=== PATIENT | male | born 1955 | race African-American/Black ===

== ENCOUNTER 2017-06-09 06:47 | Emergency (ER) | payer SELFPAY ==
[~2017-06-09] VITALS: Ht 170.2 cm; Wt 98.9 kg
[~2017-06-09 06:47] MED LIST: NAPR220T70 PO
--- NOTE | 2017-06-09 07:01 | PHYS DOC ---
Past History Past Medical History: CAD, Hypertension, Other Past Surgical History: Coronary Bypass Surgery, Other Smoking: Quit Greater Than 1 Year Alcohol Use: None Drug Use: None Adult General Chief Complaint Chief Complaint: chest pain HPI HPI Patient is a 62 year old M who presents with dull central chest pain that is worse with activity and improved with rest. His symptoms have been present for months. He feels that his symptoms have been progressively worsening and are much worse over the past few days. He states that he has been taking ibuprofen and aspirin for his pain. He does have a history of CAD and has had an CABG. Review of Systems Review of Systems Constitutional: Denies fever or chills [] Eyes: Denies change in visual acuity, redness, or eye pain [] HENT: Denies nasal congestion or sore throat [] Respiratory: Denies cough or shortness of breath [] Cardiovascular: No additional information not addressed in HPI [] GI: Denies abdominal pain, nausea, vomiting, bloody stools or diarrhea [] : Denies dysuria or hematuria [] Musculoskeletal: Denies back pain or joint pain [] Integument: Denies rash or skin lesions [] Neurologic: Denies headache, focal weakness or sensory changes [] Endocrine: Denies polyuria or polydipsia [] All other systems were reviewed and found to be within normal limits, except as documented in this note. Family History Family History Family history of heart disease Current Medications Current Medications Current medications reviewed Allergies Allergies Allergies Coded Allergies Type Severity Reaction Last Updated Verified No Known Drug Allergies 08/30/13 No Physical Exam Physical Exam Constitutional: Well developed, well nourished, no acute distress, non-toxic appearance. [] HENT: Normocephalic, atraumatic, bilateral external ears normal, oropharynx moist, no oral exudates, nose normal. [] Eyes: EOMI, conjunctiva normal, no discharge. [] Neck: Normal range of motion, no tenderness, supple, no stridor. [] Cardiovascular:Heart rate regular rhythm, Lungs & Thorax: Bilateral breath sounds clear to auscultation [] point tender pain over the superior edge of the sternum. Abdomen: Bowel sounds normal, soft, no tenderness, no masses, no pulsatile masses. [] Skin: Warm, dry, no erythema, no rash. [] Back: No tenderness, no CVA tenderness. [] Extremities: No tenderness, no cyanosis, no clubbing, ROM intact, no edema. [] Neurologic: Alert and oriented X 3, normal motor function, normal sensory function, no focal deficits noted. [] Psychologic: Affect normal, judgement normal, mood normal. [] Current Patient Data Vital Signs Vital Signs Date Time Temp Pulse Resp B/P (MAP) Pulse Ox O2 Delivery O2 Flow Rate FiO2 06/09/17 06:47 97.6 65 18 94 Room Air Lab Results Laboratory Tests Test 06/09/17 07:05 White Blood Count 5.4 x10^3/uL (4.0-11.0) Red Blood Count 5.21 x10^6/uL (4.30-5.70) Hemoglobin 16.6 g/dL (13.0-17.5) Hematocrit 47.6 % (39.0-53.0) Mean Corpuscular Volume 91 fL (79-100) Mean Corpuscular Hemoglobin 32 pg (25-35) Mean Corpuscular Hemoglobin Concent 35 g/dL (31-37) Red Cell Distribution Width 12.8 % (11.5-14.5) Platelet Count 229 x10^3/uL (140-400) Neutrophils (%) (Auto) 52 % (31-73) Lymphocytes (%) (Auto) 33 % (24-48) Monocytes (%) (Auto) 9 % (0-9) Eosinophils (%) (Auto) 6 % (0-3) Basophils (%) (Auto) 1 % (0-3) Neutrophils # (Auto) 2.8 x10^3uL (1.8-7.7) Lymphocytes # (Auto) 1.8 x10^3/uL (1.0-4.8) Monocytes # (Auto) 0.5 x10^3/uL (0.0-1.1) Eosinophils # (Auto) 0.3 x10^3/uL (0.0-0.7) Basophils # (Auto) 0.0 x10^3/uL (0.0-0.2) Sodium Level 138 mmol/L (136-145) Potassium Level 3.8 mmol/L (3.5-5.1) Chloride Level 99 mmol/L (98-107) Carbon Dioxide Level 32 mmol/L (21-32) Anion Gap 7 (6-14) Blood Urea Nitrogen 23 mg/dL (8-26) Creatinine 1.4 mg/dL (0.7-1.3) Estimated GFR (Cockcroft-Gault) 61.7 Glucose Level 150 mg/dL (70-99) Calcium Level 9.4 mg/dL (8.5-10.1) Magnesium Level 1.8 mg/dL (1.8-2.4) Creatine Kinase 113 U/L (39-308) Creatine Kinase MB (Mass) 4.2 ng/mL (0.0-3.6) Creatine Kinase MB Relative Index 3.7 % (0-4) Troponin I Quantitative 0.234 ng/mL (0-0.055) EKG EKG Sinus rhythm, normal QRS interval, T-wave inversion in leads 1 to aVF as well as V2 through V6. No significant interval changes noted when compared 3 EKGs from 08/30/13 Radiology/Procedures Radiology/Procedures [] Course & Med Decision Making Course & Med Decision Making Pertinent Labs and Imaging studies reviewed. (See chart for details) Will treat elevated blood pressure with hydralazine as needed. Will also give Lovenox 1/kg Dragon Disclaimer Dragon Disclaimer This electronic medical record was generated, in whole or in part, using a voice recognition dictation system. Departure Departure: Impression: Primary Impression: Non-ST elevation (NSTEMI) myocardial infarction Disposition: 05 XFER OTHER Condition: GUARDED LISSETH GAMBOA MD Jun 09, 2017 07:01
[2017-06-09 07:18] LABS: BASO % 1 % (0-3); EOS # 0.3 x10^3/uL (0.0-0.7); EOS % 6 % (0-3); HEMATOCRIT 47.6 % (39.0-53.0); HEMOGLOBIN 16.6 g/dL (13.0-17.5); LYMPH # 1.8 x10^3/uL (1.0-4.8); LYMPH % 33 % (24-48); MEAN CORPUSCULAR HEMOGLOBIN 32 pg (25-35); MEAN CORPUSCULAR HGB CONC 35 g/dL (31-37); MEAN CORPUSCULAR VOLUME 91 fL (79-100); MONO # 0.5 x10^3/uL (0.0-1.1); MONO % 9 % (0-9); NEUT # 2.8 x10^3uL (1.8-7.7); NEUT % 52 % (31-73); PLATELET COUNT 229 x10^3/uL (140-400); RED BLOOD COUNT 5.21 x10^6/uL (4.30-5.70); RED CELL DISTRIBUTION WIDTH 12.8 % (11.5-14.5); WHITE BLOOD COUNT 5.4 x10^3/uL (4.0-11.0)
[2017-06-09 07:45] LABS: CALCIUM 9.4 mg/dL (8.5-10.1); CREATININE 1.4 mg/dL (0.7-1.3); GFR 61.7; MAGNESIUM 1.8 mg/dL (1.8-2.4); POTASSIUM 3.8 mmol/L (3.5-5.1)
[2017-06-09] MEDS ORDERED: hydrALAZINE 20 MG/ML VIAL. IV ONE (08:00)
[2017-06-09] MEDS ORDERED: ENOXAPARIN ** NOTE DOSE ** SYRINGE SQ ONE (08:30)
[2017-06-09 08:40] VITALS: BP 175/97
[2017-06-09] MEDS ORDERED: MORPHINE SULFATE 2 MG/ML DISP.SYRIN. IV ONE (09:00)
--- NOTE | 2017-06-09 12:58 | EKG ---
[address] [address] Test Date: 2017-06-09 Test Time: 06:52:56 Pat Name: JAREN PHILIP Department: Room: Gender: M Dairy Husbandman: TRISH : 1955 Requested By: LISSETH GAMBOA Order Number: [id number] Reading MD: Measurements Intervals [place] Rate: 66 P: 54 NE: 148 QRS: -8 QRSD: 102 T: 176 QT: 370 QTc: 389 Interpretive Statements SINUS RHYTHM VENTRICULAR PREMATURE COMPLEX(ES) LEFTWARD AXIS LVH WITH REPOLARIZATION ABNORMALITY QRS(T) CONTOUR ABNORMALITY CONSIDER ANTEROSEPTAL MYOCARDIAL DAMAGE CONSIDER INFERIOR INFARCT ABNORMAL ECG RI6.01 No previous ECG available for comparison
== END 2017-06-09 09:30 | disposition short-term general hospital (02) ==
LOC: ER 06:47
DX: I21.4 Non-ST elevation (NSTEMI) myocardial infarction (principal); I10 Essential (primary) hypertension; I25.810 Atherosclerosis of coronary artery bypass graft(s) without angina pectoris; Z87.891 Personal history of nicotine dependence
CPT/HCPCS: 36415; 80048; 82553; 83735; 84484; 85025; 93005; 96372; 96374; 99285; J0360; J1650

== ENCOUNTER 2019-02-02 07:45 | Emergency (ER) | payer MEDICARE ==
[~2019-02-02] VITALS: Ht 170.2 cm; Wt 99.1 kg
[2019-02-02 07:52] VITALS: BP 175/97
[2019-02-02] MEDS: ONDANSETRON ODT 4 MG TAB.RAPDIS PO ONE (08:14)
[2019-02-02] MEDS ORDERED: MELO7.5T29 PO (08:20)
[2019-02-02] MEDS ORDERED: ONDA4TAB7 PO (08:20)
[2019-02-02] MEDS ORDERED: AMOX500T PO (08:20)
[2019-02-02] MEDS ORDERED: PROM118S9 PO (08:20)
--- NOTE | 2019-02-02 08:21 | PHYS DOC ---
Past History Past Medical History: CAD, High Cholesterol, Hypertension, Other Past Surgical History: Coronary Bypass Surgery Smoking: Quit Greater Than 1 Year Alcohol Use: None Drug Use: None Adult General Chief Complaint Chief Complaint: MULTIPLE COMPLAINTS HPI HPI Patient is a 64-year-old male presents complaining of left ear pain after a pop several days ago, with decreased hearing in the ear. He denies any drainage. Denies any fever. Nothing makes the symptoms better or worse. He has long- standing hearing loss in his right ear. He has been nauseated for the past week. No fever. He has not receive the flu vaccine this season. He has not yet had any episodes of emesis. No diarrhea. S ugar seems to make discomfort and nausea worse. Nothing makes it better. Symptoms are moderate in intensity.[] Review of Systems Review of Systems Constitutional: Denies fever or chills [] Eyes: Denies change in visual acuity, redness, or eye pain [] HENT: See history of present illness, nasal congestion is present as well.[] Respiratory: Denies cough or shortness of breath [] Cardiovascular: No chest pain or palpitations[] GI: Denies abdominal pain, vomiting, bloody stools or diarrhea , see history of present illness[] : Denies dysuria or hematuria [] Musculoskeletal: Denies back pain or joint pain [] Integument: Denies rash or skin lesions [] Neurologic: Denies headache, focal weakness or sensory changes [] Endocrine: Denies polyuria or polydipsia [] All other systems were reviewed and found to be within normal limits, except as documented in this note. Current Medications Current Medications Current Medications Medications (Trade) Dose Ordered Sig/Phu Start Time Stop Time Status Last Admin Dose Admin Ondansetron HCl (Zofran Odt) 4 mg 1X ONCE 02/02/19 08:15 02/02/19 08:16 UNV Allergies Allergies Allergies Coded Allergies Type Severity Reaction Last Updated Verified No Known Drug Allergies 08/30/13 No Physical Exam Physical Exam Constitutional: Well developed, well nourished, no acute distress, non-toxic appearance. [] HENT: Normocephalic, atraumatic, bilateral external ears normal, left TM has fluid meniscus, no rupture, no movement with insufflation. Right TM is normal. oropharynx moist, no oral exudates, nose normal. [] Eyes: PERRLA, EOMI, conjunctiva normal, no discharge. [] Neck: Normal range of motion, no tenderness, supple, no stridor. [] Cardiovascular:Heart rate regular rhythm, no murmur [] Lungs & Thorax: Bilateral breath sounds clear to auscultation [] Abdomen: Bowel sounds normal, soft, no tenderness, no masses, no pulsatile masses. [] Skin: Warm, dry, no erythema, no rash. [] Back: No tenderness, no CVA tenderness. [] Extremities: No tenderness, no cyanosis, no clubbing, ROM intact, no edema. [] Neurologic: Alert and oriented X 3, normal motor function, normal sensory function, no focal deficits noted. [] Psychologic: Affect normal, judgement normal, mood normal. [] Current Patient Data Vital Signs Vital Signs Date Time Temp Pulse Resp B/P (MAP) Pulse Ox O2 Delivery O2 Flow Rate FiO2 02/02/19 07:52 97.5 80 20 96 Room Air 02/02/19 07:45 121/71 (88) EKG EKG [] Radiology/Procedures Radiology/Procedures [] Course & Med Decision Making Course & Med Decision Making Pertinent Labs and Imaging studies reviewed. (See chart for details) ED course: Patient arrived, was placed in bed, and tolerated exam well. Discussed possible need for hearing aids given his long-standing hearing issues. [facility]. Printed him a list of hearing aid options from a google search. He was given a dose of antibiotics while in the emergency department. Discussed findings and plan with the patient who voiced understanding. All questions were answered. He was discharged in improved condition. Medical decision making: Patient with upper respiratory infection as well as left ear otitis media. Will treat him for this with decongestants and antibiotic therapy. Additionally he has some nausea for the past week, which does not appear to be cardiac nor significant GI related. No evidence of obstruction or perforation. We will treat with oral, outpatient antibiotics.[] Dragon Disclaimer Dragon Disclaimer This electronic medical record was generated, in whole or in part, using a voice recognition dictation system. Departure Departure: Impression: Primary Impression: Upper respiratory infection Additional Impressions: Left otitis media Nausea Disposition: 01 HOME, SELF-CARE Condition: IMPROVED Referrals: ANTHONY RALPH DO (PCP) Follow-up in 2 days Patient Instructions: Nausea, Adult, Otitis Media, Adult, Upper Respiratory Infection, Adult Additional Instructions: Drink plenty of fluids, frequent small sips. No fatty foods, no milk, and no pepper for the next 48 hours. For the next 48 hours eat a diet rich in car bohydrates with foods such as bananas, rice, applesauce, and toast. Follow-up with your regular doctor in 2 days. Take the medication as prescribed. For your long-standing hearing loss, list of relatively inexpensive hearing aid options is being provided for you. Return to the ER if worsening pain, unable to tolerate liquids, or any other concerns. Scripts Ondansetron Hcl (ZOFRAN) 4 Mg Tablet 1 TAB PO Q6HRS for nausea or vomiting, #20 TAB Prov: SUZE ONEIL DO 02/02/19 D-Methorphan Hb/Prometh Hcl (PROMETHAZINE-DM SYRUP) 118 Ml Syrup 5 ML PO PRN Q4HRS for CONGESTION, #120 ML Prov: SUZE ONEIL DO 02/02/19 Meloxicam (MELOXICAM) 7.5 Mg Tablet 7.5 MG PO DAILY for PAIN, #20 TAB Prov: SUZE ONEIL DO 02/02/19 Amoxicillin (AMOXICILLIN) 500 Mg Tablet 500 MG PO TID for ear infection for 10 Days, #30 TAB Prov: SUZE ONEIL DO 02/02/19 Problem Qualifiers Primary Impression: Upper respiratory infection URI type: unspecified URI Qualified Codes: J06.9 - Acute upper respiratory infection, unspecified Additional Impressions: Left otitis media Otitis media type: unspecified Qualified Codes: H66.92 - Otitis media, unspecified, left ear SUZE ONEIL DO Feb 02, 2019 08:21
== END 2019-02-02 08:25 | disposition home or self-care (01) ==
LOC: ER 07:45
DX: H66.92 Otitis media, unspecified, left ear (principal); J06.9 Acute upper respiratory infection, unspecified; I25.810 Atherosclerosis of coronary artery bypass graft(s) without angina pectoris; E78.00 Pure hypercholesterolemia, unspecified; I10 Essential (primary) hypertension; Z87.891 Personal history of nicotine dependence
CPT/HCPCS: 99283; Q0162

== ENCOUNTER 2020-12-26 10:29 | Emergency (ER) | payer MEDICARE ==
[~2020-12-26] VITALS: Ht 170.2 cm; Wt 94.4 kg
[~2020-12-26 10:29] MED LIST changes: +AMOX500T PO; +MELO7.5T29 PO; +ONDA4TAB7 PO; +PROM118S10 PO
[2020-12-26] MEDS ORDERED: IOHEXOL 300 MG/ML 75 ML VIAL. IV ONE (11:00)
[2020-12-26] MEDS ORDERED: CONTRAST GIVEN. MC PRN (11:00)
[2020-12-26 11:19] LABS: BASO % 0 % (0-3); EOS # 0.3 x10^3/uL (0.0-0.7); EOS % 4 % (0-3); HEMATOCRIT 42.9 % (39.0-53.0); HEMOGLOBIN 14.1 g/dL (13.0-17.5); LYMPH # 1.7 x10^3/uL (1.0-4.8); LYMPH % 23 % (24-48); MEAN CORPUSCULAR HEMOGLOBIN 32 pg (25-35); MEAN CORPUSCULAR HGB CONC 33 g/dL (31-37); MEAN CORPUSCULAR VOLUME 97 fL (79-100); MONO # 0.8 x10^3/uL (0.0-1.1); MONO % 11 % (0-9); NEUT # 4.5 x10^3uL (1.8-7.7); NEUT % 62 % (31-73); PLATELET COUNT 220 x10^3/uL (140-400); RED BLOOD COUNT 4.44 x10^6/uL (4.30-5.70); RED CELL DISTRIBUTION WIDTH 13.1 % (11.5-14.5); WHITE BLOOD COUNT 7.3 x10^3/uL (4.0-11.0)
[2020-12-26 11:29] LABS: CALCIUM 9.2 mg/dL (8.5-10.1); CREATININE 1.5 mg/dL (0.7-1.3); GFR 56.5; POTASSIUM 4.1 mmol/L (3.5-5.1)
--- NOTE | 2020-12-26 11:46 | PHYS DOC ---
Past History Past Medical History: CAD, High Cholesterol, Hypertension, Other (ANETA RAYMUNDO APRN) Past Surgical History: Coronary Bypass Surgery (ANETA RAYMUNDO APRN) Smoking: Quit Greater Than 1 Year Alcohol Use: None Drug Use: None (ANETA RAYMUNDO APRN) General Adult EDM: Chief Complaint: CONSTIPATION HPI: HPI: Patient is a 65-year-old male who presents with nausea and abdominal pain since Tuesday. Patient denies vomiting, fever. "I got my booster shot on Tuesday and I have not felt good since then". Last bowel movement was 2 weeks ago, which patient states is normal for him to have long periods between bowel movements. Patient reports he normally takes stool softeners but has taken any recently because he states it does not work. Denies any abdominal surgeries. Health history consist of hypertension, CAD. Patient is fully vaccinated for COVID-19. All immunizations up-to-date. (ANETA RAYMUNDO APRN) Review of Systems: Review of Systems: ROS At least 10 ROS systems have been reviewed and are negative except as documented in the HPI. General: Negative except as outlined in HPI above. Skin: Negative except as outlined in HPI above. HEENT: Negative except as outlined in HPI above. Neck: Negative except as outlined in HPI above. Respiratory: Negative except as outlined in HPI above.. Cardiovascular: Negative except as outlined in HPI above. Abdomen: Negative except as outlined in HPI above. : Negative except as outlined in HPI above. Back/MSK: Negative except as outlined in HPI above. Neuro: Negative except as outlined in HPI above. Psych: Negative except as outlined in HPI above. (ANETA RAYMUNDO APRN) Current Medications: Current Meds: Current Medications Medications (Trade) Dose Ordered Sig/Phu Start Time Stop Time Status Last Admin Dose Admin Info (Do NOT chart on this entry -- for MONITORING) 1 each PRN DAILY PRN 12/26/20 11:00 12/28/20 10:59 Iohexol (Omnipaque 300 Mg/ml) 75 ml 1X ONCE 12/26/20 11:00 12/26/20 11:01 DC 12/26/20 11:37 75 ML (ANETA RAYMUNDO APRN) Allergies: Allergies: Allergies Coded Allergies Type Severity Reaction Last Updated Verified No Known Drug Allergies 08/30/13 No (ANETA RAYMUNDO APRN) Physical Exam: PE: Constitutional: Well developed, well nourished, no acute distress, non-toxic appearance. [] HENT: Normocephalic, atraumatic, bilateral external ears normal, oropharynx moist, no oral exudates, nose normal. [] Eyes: PERRLA, EOMI, conjunctiva normal, no discharge. [] Neck: Normal range of motion, no tenderness, supple, no stridor. [] Cardiovascular:Heart rate regular rhythm, no murmur [] Lungs & Thorax: Bilateral breath sounds clear to auscultation [] Abdomen: Bowel sounds normal, soft, lower abdominal tenderness Skin: Warm, dry, no erythema, no rash. [] Back: No tenderness, no CVA tenderness. [] Extremities: No tenderness, no cyanosis, no clubbing, ROM intact, no edema. [] Neurologic: Alert and oriented X 3, normal motor function, normal sensory function, no focal deficits noted. [] Psychologic: Affect normal, judgement normal, mood normal. [] (ANETA RAYMUNDO APRN) Current Patient Data: Labs: Laboratory Tests Test 12/26/20 10:55 White Blood Count 7.3 x10^3/uL (4.0-11.0) Red Blood Count 4.44 x10^6/uL (4.30-5.70) Hemoglobin 14.1 g/dL (13.0-17.5) Hematocrit 42.9 % (39.0-53.0) Mean Corpuscular Volume 97 fL (79-100) Mean Corpuscular Hemoglobin 32 pg (25-35) Mean Corpuscular Hemoglobin Concent 33 g/dL (31-37) Red Cell Distribution Width 13.1 % (11.5-14.5) Platelet Count 220 x10^3/uL (140-400) Neutrophils (%) (Auto) 62 % (31-73) Lymphocytes (%) (Auto) 23 % (24-48) L Monocytes (%) (Auto) 11 % (0-9) H Eosinophils (%) (Auto) 4 % (0-3) H Basophils (%) (Auto) 0 % (0-3) Neutrophils # (Auto) 4.5 x10^3uL (1.8-7.7) Lymphocytes # (Auto) 1.7 x10^3/uL (1.0-4.8) Monocytes # (Auto) 0.8 x10^3/uL (0.0-1.1) Eosinophils # (Auto) 0.3 x10^3/uL (0.0-0.7) Basophils # (Auto) 0.0 x10^3/uL (0.0-0.2) Sodium Level 138 mmol/L (136-145) Potassium Level 4.1 mmol/L (3.5-5.1) Chloride Level 103 mmol/L (98-107) Carbon Dioxide Level 25 mmol/L (21-32) Anion Gap 10 (6-14) Blood Urea Nitrogen 20 mg/dL (8-26) Creatinine 1.5 mg/dL (0.7-1.3) H Estimated GFR (Cockcroft-Gault) 56.5 Glucose Level 86 mg/dL (70-99) Calcium Level 9.2 mg/dL (8.5-10.1) Vital Signs: Vital Signs Date Time Temp Pulse Resp B/P (MAP) Pulse Ox O2 Delivery O2 Flow Rate FiO2 12/26/20 10:43 98.2 68 18 147/66 (93) 97 (ANETA RAYMUNDO APRN) EKG: EKG: Sinus rhythm. Heart rate 56 bpm. No STEMI. Read by Dr. Quezada. (ANETA RAYMUNDO APRN) Radiology/Procedures: Radiology/Procedures: []INDICATION: Reason: ABDOMINAL PAIN OMNI 300 75ML IV / Spl. Instructions: / History: . COMPARISON: None. TECHNIQUE: Axial CT images obtained through the abdomen and pelvis with contrast. One or more of the following individualized dose reduction techniques were utilized for this examination: 1. Automated exposure control; 2. Adjustment of the mA and/or kV according to patient size; 3. Use of iterative reconstruction technique. FINDINGS: Mild dependent opacities at the lung bases left greater than right. Multifocal plaque throughout the vasculature. Fat-containing left greater than right inguinal hernia. No intrahepatic bile duct dilation. No peripancreatic fluid collection. Left renal cystic lesion measuring approximately 16 mm which is a common finding. Prostate is enlarged. Urinary bladder is partially distended. No hydronephrosis. Small fat-containing umbilical hernia. No periappendiceal inflammatory changes. There is a couple of fat-containing anterior abdominal wall hernias including adjacent to umbilicus. No dilated loops of bowel to suggest obstruction. 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 Degenerative changes of the hips. IMPRESSION: * No evidence of bowel obstruction or appendicitis. * Dependent airspace opacities lung bases could be from atelectasis but infiltrate also within differential. * Degenerative changes the spine with multilevel central canal and neural foraminal stenosis. Electronically signed by: Aristides Ty MD (12/26/2020 12:17 PM) [id number] (ANETA RAYMUNDO APRN) Heart Score: C/O Chest Pain: No Risk Factors: Risk Factors: DM, Current or recent (<one month) smoker, HTN, HLP, family history of CAD, obesity. Risk Scores: Score 0 - 3: 2.5% MACE over next 6 weeks - Discharge Home Score 4 - 6: 20.3% MACE over next 6 weeks - Admit for Clinical Observation Score 7 - 10: 72.7% MACE over next 6 weeks - Early Invasive Strategies (ANETA RAYMUNDO APRN) Course & Med Decision Making: Course & Med Decision Making Pertinent Labs and Imaging studies reviewed. (See chart for details) [] 65-year-old male presents with nausea and abdominal pain since Tuesday. CT abdomen pelvis with contrast ordered to rule out obstruction. Patient denies abdominal surgery. Patient has history of constipation and has not had a bowel movement in [address] abdomen and pelvis was unremarkable. CT of abdomen did show some stool which patient stated he had not had a bowel movement in 2 weeks. Patient given mag citrate to help with constipation. Patient sent home with prescription for Zofran for nausea. Advised patient to follow-up with PCP in the next couple of days. Discussed return precautions. Patient voiced understanding of discharge instructions. Patient was hemodynamically stable upon disposition (ANTEA RAYMUNDO APRN) Dragon Disclaimer: Dragon Disclaimer: This electronic medical record was generated, in whole or in part, using a voice recognition dictation system. (ANETA RAYMUNDO APRN) Attending Co-Sign The patient was seen and interviewed as well as examined at the bedside. The chart was reviewed. The case was discussed. Agree with the plan of care. (EB QUEZADA DO) Departure Departure: Impression: Primary Impression: Nausea Additional Impression: Abdominal pain Qualified Codes: R10.30 - Lower abdominal pain, unspecified Disposition: HOME / SELF CARE / HOMELESS Condition: STABLE Referrals: CLIFFORD HADLEY MD (PCP) Patient Instructions: Constipation, Adult, Zfax-ld-Enal Additional Instructions: Emergency room for nausea and abdominal pain. We did a CT of your abdomen which showed some constipation. You were given mag citrate to help with constipation. I want you to follow-up with your PCP in the next couple of days. Please return to the emergency room if you have worsening symptoms or concerns. EMERGENCY DEPARTMENT GENERAL DISCHARGE INSTRUCTIONS Thank you for coming to [facility] (ED) today and trusting us with you care. We trust that you had a positivie experience in our Emergency Department. If you wish to speak to the department management, you may call the director at [phone]. YOUR FOLLOW UP INSTRUCTIONS ARE FOLLOWS: 1. Do you have a private Doctor? If you do not have a private doctor, please ask for a resource list of physicians or clinics that may be able to assist you with follow up care. 2. The Emergency Physician has interpreted your x-rays. The X-Ray specialist will also review them. If there is a change in the findings, you will be notified in 48 hours when at all possible. 3. A lab test or culture has been done, your results will be reviewed and you will be notified if you need a change in treatment. ADDITIONAL INSTRUCTIONS AND INFORMATION: 1. Your care today has been supervised by a physician who is specially trained in emergency care. Many problems require more than one evaluation for a complete diagnosis and treatment. We recommend that you schedule your follow up appointment as recommended to ensure complete treatment of you illness or injury. If you are unable to obtain follow up care and continue to have a problem, or if your condition worsens, we recommend that you return to the ED. 2. We are not able to safely determine your condition over the phone nor are we able to give sound medical advice over the phone. For these safety reasons, if you call for medical advice we will ask you to come to the ED for further evaluation. 3. If you have any questions regarding these discharge instructions please call the ED at [phone]. SAFETY INFORMATION: In the interest of safety, wellness, and injury prevention; we encourage you to wear your sealbelt, if you smoke; quite smoking, and we encourage family to use a pro tective helmet for bicycling and other sporting events that present an increased risk for head injury. IF YOUR SYMPTOMS WORSEN OR NEW SYMPTOMS DEVELOP, OR YOU HAVE CONCERNS ABOUT YOUR CONDITION; OR IF YOUR CONDITION WORSENS WHILE YOU ARE WAITING FOR YOUR FOLLOW UP APPOINTMENT; EITHER CONTACT YOUR PRIMARY CARE DOCTOR, THE PHYSICIAN WHOSE NAME AND NUMBER YOU WERE GIVEN, OR RETURN TO THE ED IMMEDIATELY. Scripts Ondansetron (ONDANSETRON ODT) 4 Mg Tab.rapdis 1 TAB PO PRN Q6-8HRS for nausea, #16 TAB Prov: ANETA RAYMUNDO APRN 12/26/20 ANETA RAYMUNDO APRN Dec 26, 2020 11:46 EB QUEZADA DO Dec 28, 2020 10:17
--- NOTE | 2020-12-26 11:55 | EKG ---
[address] [address] Test Date: 2020-12-26 Test Time: 10:51:54 Pat Name: JAREN PHILIP Department: Room: Gender: M Technical Sales Representative: TRISH : 1955 Requested By: ANETA RAYMUNDO Order Number: [id number] Reading MD: Cruz Lazo MD Measurements Intervals [place] Rate: 56 P: 43 [place]: 144 QRS: -9 QRSD: 90 T: 26 QT: 574 QTc: 557 Interpretive Statements SINUS RHYTHM NON-SPECIFIC ST/T CHANGES CONSIDER INFERIOR INFARCT Electronically Signed On 12-26-2020 13:21:54 FIELD REP by Cruz Lazo MD
--- NOTE | 2020-12-26 12:19 | RAD ---
INDICATION: Reason: ABDOMINAL PAIN OMNI 300 75ML IV / Spl. Instructions: / History: . COMPARISON: None. TECHNIQUE: Axial CT images obtained through the abdomen and pelvis with contrast. One or more of the following individualized dose reduction techniques were utilized for this examinat ion: 1. Automated exposure control; 2. Adjustment of the mA and/or kV according to patient size; 3 . Use of iterative reconstruction technique. FINDINGS: Mild dependent opacities at the lung bases left greater than right. Multifocal plaque throughout the vasculature. Fat-containing left greater than right inguinal hernia. No intrahepatic bile duct dilation. No peripancreatic fluid collection. Left renal cystic lesion measuring approximately 16 mm which is a common finding. Prostate is enlarged. Urinary bladder is partially distended. No hydronephrosis. Small fat-containing umbilical hernia. No periappendiceal inflammatory changes. There is a couple of fat-containing anterior abdominal wall hernias including adjacent to umbilicus. No dilated loops of bowel to suggest obstruction. 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 Degenerative changes of the hips. IMPRESSION: * No evidence of bowel obstruction or appendicitis. * Dependent airspace opacities lung bases could be from atelectasis but infiltrate also within diffe rential. * Degenerative changes the spine with multilevel central canal and neural foraminal stenosis. Electronically signed by: Aristides Ty MD (12/26/2020 12:17 PM) [id number]
[2020-12-26] MEDS ORDERED: ONDA4TAB12 PO (12:25)
[2020-12-26 12:30] VITALS: BP 122/70
[2020-12-26] MEDS ORDERED: MAGNESIUM CITRATE 296 ML SOLUTION. PO ONE (13:00)
== END 2020-12-26 12:40 | disposition home or self-care (01) ==
LOC: ER 10:29
DX: K40.90 Unilateral inguinal hernia, without obstruction or gangrene, not specified as recurrent (principal); K59.00 Constipation, unspecified; E78.5 Hyperlipidemia, unspecified; I10 Essential (primary) hypertension; Z87.891 Personal history of nicotine dependence
CPT/HCPCS: 36415; 74177; 80048; 85025; 93005; 99285; Q9967